=== PATIENT | female | born 1980 | race Caucasian/White ===

== ENCOUNTER 2019-05-07 18:47 | Inpatient (IN) | payer BC ==
[~2019-05-07] VITALS: Ht 172.7 cm; Wt 100.9 kg
[2019-05-07] MEDS ORDERED: PIPER-TAZ 3.375 GM 50 ML IV ONE (19:10)
[2019-05-07] MEDS ORDERED: VANCOMYCIN 1GM/NS 250 ML 250 ML IV ONE (19:10)
[2019-05-07] MEDS ORDERED: ONDANSETRON HCL INJ 2MG/ML 2ML 2 MG/ML VIAL IV ONE (19:10)
[2019-05-07] MEDS ORDERED: SODIUM CHLORIDE 0.9% 1000ML 1,000 ML IV STA (19:10)
[2019-05-07 19:27] LABS: BASOPHILS % 0.2 % (0.0-1.0); EOSINOPHILS # (AUTO) 0.2 (0.0-0.4); EOSINOPHILS % 1.5 % (0.0-6.0); HEMATOCRIT 39.7 % (34.2-44.1); HEMOGLOBIN 12.7 g/dL (12.0-16.0); LYMPHOCYTES # (AUTO) 1.6 (1.0-3.2); LYMPHOCYTES % 16.1 % (18.0-39.1); MEAN CORPUSCULAR HEMOGLOBIN 25.6 pg (28-32); MONOCYTES # (AUTO) 0.6 (0.2-0.8); MONOCYTES % 5.5 % (4.4-11.3); NEUTROPHILS # (AUTO) 7.6 (2.1-6.9); NEUTROPHILS % 76.2 % (38.7-80.0); PLATELET COUNT 282 x10e3/uL (140-360); RED BLOOD COUNT 4.96 x10e6/uL (3.6-5.1)
[2019-05-07] MEDS ORDERED: SODIUM CHLORIDE 0.9% 1000ML 1,000 ML ONE (19:29)
[2019-05-07] MEDS: MORPHINE SULFATE 2 MG/ML SYR 1ML IV ONE ×2 (19:41→19:43)
[2019-05-07 19:45] LABS: ALANINE AMINOTRANSFERASE 6 IU/L (0-55); ALBUMIN 3.1 g/dL (3.5-5.0); ALBUMIN/GLOBULIN RATIO 0.8 (0.8-2.0); ALKALINE PHOSPHATASE 96 IU/L (40-150); ANION GAP 15.3 mmol/L (8-16); BLOOD UREA NITROGEN 10 mg/dL (7-26); BUN/CREATININE RATIO 12 (6-25); CALCIUM 9.4 mg/dL (8.4-10.2); CARBON DIOXIDE 24 mmol/L (22-29); CHLORIDE 97 mmol/L (98-107); CREATININE, SERUM 0.84 mg/dL (0.57-1.11); EST GLOMERULAR FILTRATION RATE > 60 ML/MIN (60-); POTASSIUM 3.3 mmol/L (3.5-5.1); SODIUM 133 mmol/L (136-145)
[2019-05-07 19:48] LABS: GLUCOSE 541 mg/dL (74-118)
[2019-05-07] MEDS ORDERED: INSULIN REGULAR, HUMAN 100 UNIT/1 ML 3ML VIAL SQ ONE (20:00)
[2019-05-07] MEDS ORDERED: SODIUM CHLORIDE 0.9% 1000ML 1,000 ML IV ONE (20:00)
--- OUTSIDE RECORDS SUMMARY | 2019-05-07 20:06 | XMS REPORT | Encounter Summary ---
Author Organization Unknown Address [address] [place] [address] Phone [phone] Reason for Visit Flu Immunization; Medical Complaint Instructions 1. Upper respiratory infection Bromfed DM 2 mg-30 mg-10 mg/5 mL syrup Augmentin 875 mg-125 mg tablet 2. Sore throat symptom rapid strep group A, throat 3. Influenza vaccine needed Fluzone Quad [id number] 60 mcg (15 mcg x 4)/0.5 mL IM suspension 4. Body mass index 30+ - obesity 5. Dietary management surveillance 6. Exercises education, guidance, and counseling Discussion Note: None recorded. Patient educational handouts: No information available. Plan of Care Patient Instructions take bromfed for the next 2 days. it can cause drowsiness. do not drive will on this medication. start antibiotics in 2-3 days if symptoms persist. follow up pcp Reminders Provider Appointments None recorded. Lab Rapid Strep Group a, Throat 08/21/2016 [facility] Referral None recorded. Procedures None recorded. Surgeries None recorded. Imaging None recorded. Medications Name Start Date Augmentin 875 mg-125 mg tablet Take 1 tablet every 12 hours by oral route with meals for 7 days. benzonatate 100 mg capsule Bromfed DM 2 mg-30 mg-10 mg/5 mL syrup Take 10 mL every 4 hours by oral route as needed. ceftriaxone ceftriaxone 250 mg solution for injection cephalexin 500 mg capsule ciprofloxacin 500 mg tablet clindamycin 300 mg capsule doxycycline hyclate 100 mg capsule doxycycline hyclate 100 mg tablet fluconazole fluconazole 150 mg tablet TK 1 T PO QD fluoxetine 20 mg capsule TK 1 C PO QAM glimepiride 1 mg tablet TK 1 T PO ONCE D WITH BREAKFAST OR 1ST MEAL OF THE DAY ibuprofen 600 mg tablet losartan 25 mg tablet metformin 500 mg tablet metronidazole 500 mg tablet mupirocin 2 % topical ointment pravastatin 40 mg tablet ProAir RespiClick 90 mcg/actuation breath activated INHALE 2 PUFFS PO Q 4 TO 6 H PRN Trulicity 1.5 mg/0.5 mL subcutaneous pen injector INJECT 0.5ML ONCE A WEEK SUBCUTANEOUSLY valacyclovir valacyclovir 1 gram tablet Medications Administered None recorded. Vitals Height Weight BMI Blood Pressure 5 ft 8 in 245 lbs 37.3 124/76 Lab Results Date Name Result Description Value Range Status Rapid Strep Group a, Throat Result negative Swab Location Left and Right tonsillar pillars Allergies Name Reaction Severity Onset Sulfa (Sulfonamide Antibiotics) Rash Problems Name Status Onset Date Source Dysfunction of Eustachian Tube Active Encounter Acute Sinusitis Active Encounter Acute Bronchitis Active Encounter Allergic Rhinitis Active Encounter Posterior Rhinorrhea Active Encounter Procedures None recorded. Vaccine List Vaccine Type influenza, injectable, quadrivalent 08/21/2016 Tdap 09/23/2009 Social History Smoking Status Never Smoker Past Encounters 08/21/2016 Upper Respiratory Infection; Sore Throat Symptom; Influenza Vaccine Needed; Body Mass Index 30+ - Obesity; Dietary Management Surveillance; Exercises Education, Guidance, and Counseling CHRISTINE Sims-C: [address] [place] [address], Ph. History of Present Illness Throat-Oral Complaint Reported By: Patient HPI: Location: throat. Quality: sore throat, productive cough, congested. Severity: mild. Duration: 3 days. Onset/Timing: gradual. Context: no sick contacts, no foreign travel, non-smoker. Associated Symptoms: no shortness of breath, no wheezing, no change in number of pillows needed to sleep at night, no sweats, no significant weight gain, no significant weight loss, no morning cough, no vomiting, no diarrhea, no rash, no nausea, yellow-green, thick sputum, sore throat Immunization Reported By: Patient HPI: Immunization Request (normal) no symptoms, No medical complaints. Immunization eligibility questions No vaccines in last month, No reaction to previous vaccines:, No Known Allergies Review of Systems:ROS as noted in the HPI Review of Systems Basic Reported By: Patient Physical Exam Adult Basic, Adult Female Complete, Immunization Reported By: Patient Constitutional: General Appearance: well-nourished, overweight. Level of Distress: NAD. Ambulation: ambulating normally Psychiatric: Mental Status: active and alert Eyes: Lids and Conjunctivae: non-injected, no discharge Mql-Vhek-Vctis-Throat: Ears: no lesions on external ear, no outer ear tenderness, TMs clear. Hearing: no hearing loss. Nose: nares patent, no nasal discharge. Lips, Teeth, and Gums: no mouth or lip ulcers. Oropharynx: moist mucous membranes, no erythema, no exudates, tonsils not enlarged Neck: Neck: supple. Lymph Nodes: no cervical LAD Lungs: Respiratory effort: no dyspnea, no tachypnea. Auscultation: breath sounds normal Cardiovascular: Heart Auscultation: no murmurs, tachycardia Neurologic: Gait and Station: normal gait, normal station
--- OUTSIDE RECORDS SUMMARY | 2019-05-07 20:06 | XMS REPORT | Continuity of Care Document ---
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 Name Role Phone [employer] Unavailable Unavailable Problems Problem Status Onset Date Classification Date Reported Comments Source Upper respiratory infection 08/21/2016 Diagnosis 08/21/2016 [facility] Sore throat symptom 08/21/2016 Diagnosis 08/21/2016 [facility] Influenza vaccine needed 08/21/2016 Diagnosis 08/21/2016 [facility] Body mass index 30+ - obesity 08/21/2016 Diagnosis 08/21/2016 [facility] Dietary management surveillance 08/21/2016 Diagnosis 08/21/2016 [facility] Exercises education, guidance, and counseling 08/21/2016 Diagnosis 08/21/2016 [facility] Acute bronchitis 01/31/2016 Diagnosis 02/01/2016 [facility] Dysfunction of Eustachian Tube Problem 08/21/2016 [facility] Acute Sinusitis Problem 08/21/2016 [facility] Acute Bronchitis Problem 08/21/2016 [facility] Allergic Rhinitis Problem 08/21/2016 [facility] Posterior Rhinorrhea Problem 08/21/2016 [facility] Medications Medication Details Route Status Patient Instructions Ordering Provider Order Date Source Brompheniramine Maleate 0.4 MG/ML / Dextromethorphan Hydrobromide 2 MG/ML / Pseudoephedrine Hydrochloride 6 MG/ML Oral Solution [Bromfed DM] Bromfed DM 2 mg-30 mg-10 mg/5 mL syrup Take 10 mL every 4 hours by oral route as needed. Active [facility] Rocephin ceftriaxone Active [facility] doxycycline hyclate 100 MG Oral Capsule doxycycline hyclate 100 mg capsule Active [facility] Diflucan fluconazole Active [facility] Metformin hydrochloride 500 MG Oral Tablet metformin 500 mg tablet Active [facility] 200 ACTUAT Albuterol 0.09 MG/ACTUAT Dry Powder Inhaler [ProAir] ProAir RespiClick 90 mcg/actuation breath activated INHALE 2 PUFFS PO Q 4 TO 6 H PRN Active [facility] benzonatate 100 MG Oral Capsule [Tessalon Perles] Tessalon Perles 100 mg capsule Take 1 capsule(s) 3 times a day by oral route. Active [facility] Valtrex valacyclovir Active [facility] Amoxicillin 875 MG / Clavulanate 125 MG Oral Tablet [Augmentin] Augmentin 875 mg-125 mg tablet Take 1 tablet every 12 hours by oral route with meals for 7 days. Active [facility] benzonatate 100 MG Oral Capsule benzonatate 100 mg capsule Active [facility] Ceftriaxone 250 MG Injection ceftriaxone 250 mg solution for injection Active [facility] Cephalexin 500 MG Oral Capsule cephalexin 500 mg capsule Active [facility] Ciprofloxacin 500 MG Oral Tablet ciprofloxacin 500 mg tablet Active [facility] Clindamycin 300 MG Oral Capsule clindamycin 300 mg capsule Active [facility] doxycycline hyclate 100 MG Oral Tablet doxycycline hyclate 100 mg tablet Active [facility] Fluconazole 150 MG Oral Tablet fluconazole 150 mg tablet TK 1 T PO QD Active [facility] Fluoxetine 20 MG Oral Capsule fluoxetine 20 mg capsule TK 1 C PO QAM Active [facility] glimepiride 1 MG Oral Tablet glimepiride 1 mg tablet TK 1 T PO ONCE D WITH BREAKFAST OR 1ST MEAL OF THE DAY Active [facility] Ibuprofen 600 MG Oral Tablet ibuprofen 600 mg tablet Active [facility] Losartan Potassium 25 MG Oral Tablet losartan 25 mg tablet Active [facility] Metronidazole 500 MG Oral Tablet metronidazole 500 mg tablet Active [facility] Mupirocin 0.02 MG/MG Topical Ointment mupirocin 2 % topical ointment Active [facility] Pravastatin Sodium 40 MG Oral Tablet pravastatin 40 mg tablet Active [facility] 0.5 ML dulaglutide 3 MG/ML Auto-Injector [Trulicity] Trulicity 1.5 mg/0.5 mL subcutaneous pen injector INJECT 0.5ML ONCE A WEEK SUBCUTANEOUSLY Active [facility] valacyclovir 1000 MG Oral Tablet valacyclovir 1 gram tablet Active [facility] Allergies, Adverse Reactions, Alerts Substance Category Reaction Severity Reaction type Status Date Reported Comments Source Sulfa (Sulfonamide Antibiotics) Rash Allergy to substance 07/14/2012 [facility] Immunizations Immunization Date Given Site Status Last Updated Comments Source influenza, injectable, quadrivalent 08/21/2016 completed [facility] Tdap 09/24/2009 completed [facility] Results Order Name Results Value Reference Range Date Interpretation Comments Source RESULT negative 08/21/2016 [facility] SWAB LOCATION Left and Right tonsillar pillars 08/21/2016 [facility] Pathology Reports No Data Provided for This Section Diagnostic Reports No Data Provided for This Section Consultation Notes No Data Provided for This Section Discharge Summaries No Data Provided for This Section History and Physicals No Data Provided for This Section Vital Signs Vital Sign Value Date Comments Source Diastolic (mm Hg) 76 08/21/2016 [facility] Height 68 08/21/2016 [facility] Systolic (mm Hg) 124 08/21/2016 [facility] Weight 245 08/21/2016 [facility] Diastolic (mm Hg) 82 01/31/2016 [facility] Height 68 01/31/2016 [facility] Systolic (mm Hg) 130 01/31/2016 [facility] Weight 247 01/31/2016 [facility] Encounters Location Location Details Encounter Type Encounter Number Reason For Visit Attending Provider ADM Date DC Date Status Source [place] [facility] [id number] [facility] [employer] BRANDER: [address], [place] [address], Ph. [phone] [id number] [facility]/2016 [facility] [place] [facility] [id number] Pollo Hardy, [facility]: [address] [place] [address], Ph. [id number] Pollo Hardy 08/21/2016 [facility] Procedures No Data Provided for This Section Assessment and Plan No Data Provided for This Section Plan of Care No Data Provided for This Section Social History Social History Date Source Smoking Status Never Smoker 07/02/2012 [facility] Family History No Data Provided for This Section Advance Directives No Data Provided for This Section Functional Status No Data Provided for This Section
--- OUTSIDE RECORDS SUMMARY | 2019-05-07 20:06 | XMS REPORT | Encounter Summary ---
Author Organization Unknown Address [address] [place] [address] Phone [phone] Reason for Visit Medical Complaint; c/o cough x 4 days Instructions 1. Acute bronchitis Tessalon Perles 100 mg capsule Bromfed DM 2 mg-30 mg-10 mg/5 mL syrup bronchitis: care instructions ProAir RespiClick 90 mcg/actuation breath activated Discussion Note: None recorded. Plan of Care Patient Instructions *Take all medicines exactly as prescribed. Call your doctor if you think you are having a problem with your medicine. *Get some extra rest. *Take an gqmg-hrm-sauordn pain medicine, such as acetaminophen (Tylenol), ibuprofen (Advil, Motrin), or naproxen (Aleve) to reduce fever and relieve body aches. Read and follow all instructions on the label. *Do not take two or more pain medicines at the same time. Many pain medicines have acetaminophen, which is Tylenol. Too much acetaminophen (Tylenol) can be harmful. *Take an jiln-ydh-ybsloom cough medicine that contains dextromethorphan to help quiet a dry, hacking cough so that you can sleep. Avoid cough medicines that have more than one active ingredient. Read and follow all instructions on the label. *Breathe moist air from a humidifier, hot shower, or sink filled with hot water. The heat and moisture will thin mucus so you can cough it out. *Do not smoke. Smoking can make bronchitis worse. If you need help quitting, talk to your doctor about stop-smoking programs and medicines. These can increase your chances of quitting for good. If no improvement in 3-5 days, or if new or worsening symptoms develop, follow up with a primary care physician. Reminders Provider Appointments None recorded. Lab None recorded. Referral None recorded. Procedures None recorded. Surgeries None recorded. Imaging None recorded. Medications Name Start Date Bromfed DM 2 mg-30 mg-10 mg/5 mL syrup Take 10 mL every 4 hours by oral route as needed. ceftriaxone doxycycline hyclate 100 mg capsule Take 1 capsule(s) twice a day by oral route. fluconazole metformin 500 mg tablet ProAir RespiClick 90 mcg/actuation breath activated Inhale 2 puff(s) every 4-6 hours by inhalation route as needed. Tessalon Perles 100 mg capsule Take 1 capsule(s) 3 times a day by oral route. valacyclovir Medications Administered None recorded. Vitals Height Weight BMI Blood Pressure 5 ft 8 in 247 lbs 37.6 130/82 Lab Results None recorded. Allergies Name Reaction Severity Onset Sulfa (Sulfonamide Antibiotics) Rash Problems Name Status Onset Date Source Dysfunction of Eustachian Tube Active Encounter Acute Sinusitis Active Encounter Acute Bronchitis Active Encounter Allergic Rhinitis Active Encounter Posterior Rhinorrhea Active Encounter Procedures None recorded. Vaccine List None recorded. Social History Smoking Status Never Smoker Past Encounters 01/31/2016 Acute Bronchitis Joyce Johnson, DRUM SANDER: [address] [place] [address], Ph. [phone] History of Present Illness Cough Reported By: Patient HPI: Quality: productive cough, sore throat, hacking cough. Duration: 4 days. Severity: moderate. Onset/Timing: gradual. Context: no sick contacts, no foreign travel, non-smoker. Modifying factors: OTC medication. Associated Symptoms: no wheezing, no sweats, no significant weight gain, no significant weight loss, no diarrhea, no rash, no nausea, shortness of breath, difficulty breathing at night, morning cough, sore throat, vomiting; Clear colored sputum Review of Systems:ROS as noted in the HPI Review of Systems Basic Reported By: Patient Physical Exam Adult Female Complete, Adult Basic Constitutional: General Appearance: healthy-appearing, well-nourished, well-developed. Level of Distress: NAD. Ambulation: ambulating normally Psychiatric: Mental Status: active and alert. Orientation: to time, to place, to person Eyes: Lids and Conjunctivae: non-injected, no discharge, no pallor. Pupils: PERRLA. Corneas: grossly intact. Lens: clear. Sclerae: non-icteric. Vision: acuity grossly intact Zyu-Odxr-Klgfu-Throat: Ears: no lesions on external ear, no outer ear tenderness, EACs clear, TMs clear. Hearing: no hearing loss. Nose: no lesions on external nose, nares patent, no septal deviation, nasal passages clear, no sinus tenderness, no nasal discharge. Lips, Teeth, and Gums: no mouth or lip ulcers, no bleeding gums, normal dentition. Oropharynx: moist mucous membranes, no erythema, no exudates, tonsils not enlarged Neck: Neck: supple, trachea midline, no masses, FROM. Lymph Nodes: no cervical LAD. Thyroid: no enlargement, non-tender, no nodules Lungs: Respiratory effort: no dyspnea, no tachypnea, no use of accessory muscles, no intercostal retractions. Auscultation: breath sounds normal Cardiovascular: Heart Auscultation: RRR, no murmurs
--- NOTE | 2019-05-07 21:14 | Diagnostic Imaging Report ---
EXAM: CT of the abdomen and pelvis WITH contrast HISTORY: Redness, right upper quadrant, pain, rule out abscess, history of diabetes COMPARISON: None. TECHNIQUE: The abdomen and pelvis were scanned utilizing a multidetector helical scanner. Coronal and sagittal reformats are provided. PROTOCOL: Routine IV CONTRAST: 100 cc of Isovue-370. ORAL CONTRAST: None, which limits sensitivity and specificity of the exam. RADIATION DOSE: Total DLP: 828.77 mGy*cm Estimated effective dose: (DLP x 0.015 x size factor) Dose modulation, iterative reconstruction, and/or weight based adjustment of the mA/kV was utilized to reduce the radiation dose to as low as reasonably achievable. COMPLICATIONS: None FINDINGS: LOWER THORAX: Minimal bibasilar atelectasis. HEPATOBILIARY: No mass. No biliary dilation. No calcified gallstone. SPLEEN: Mild splenomegaly, 13 cm. PANCREAS: No focal masses or ductal dilatation. ADRENALS: Subtle nodular contour, but no discrete adrenal nodule. KIDNEYS/URETERS: No hydronephrosis, stones, or definite solid mass lesions. PELVIC ORGANS/BLADDER: The urinary bladder is decompressed, which limits evaluation. The uterus is mildly retroflexed. GI TRACT: No dilation or wall thickening identified. PERITONEUM / RETROPERITONEUM: No free air or fluid. LYMPH NODES: No pathologically enlarged lymph node. VESSELS: Unremarkable. BONES and JOINTS: No aggressive osseous lesion or acute fracture. Severe degenerative disc changes at L2-3. SOFT TISSUES: Nonspecific fat stranding within the adipose tissue overlying the anterolateral aspect of the right upper quadrant of the abdomen, apparent subtle superficial soft tissue defect. IMPRESSION: 1. Findings compatible with cellulitis/panniculitis. 2. No abscess. Signed by: Dr. Carlo Miranda D.O., M.M.M. on 05/07/2019 9:10 PM
[2019-05-07] MEDS ORDERED: ONDANSETRON HCL INJ 2MG/ML 2ML 2 MG/ML VIAL IV PRN (21:45)
[2019-05-07] MEDS ORDERED: DEXTROSE 50% SYRINGE 50 ML IV PRN (21:45)
--- OUTSIDE RECORDS SUMMARY | 2019-05-07 21:51 | XMS REPORT ---
Author Author [facility] Address Unknown Phone Unavailable Care Team Providers Care Manager Animation Name Role Phone Piper ALLRED Unavailable Unavailable Problems This patient has no known problems. Allergies, Adverse Reactions, Alerts This patient has no known allergies or adverse reactions. Medications This patient has no known medications. Results Test Description Test Time Test Comments Text Results Atomic Results Result Comments CT ABDOMEN/PELVIS W 2019-05-07 21:02:00 [place] [address] Patient Name: DICKSON CABELLO MR #: [id number] : 1980 Age/Sex: 39/F Req #: [id number] Adm Physician: Ordered by: TAMAR COLON EVENT SPECIALIST PRODUCT DEMONSTRATOR Report #: [id number] Location: ER Room/Bed: Procedure: [id number] CT/CT ABDOMEN/PELVIS W Exam Date: 05/07/19 Exam Time: 2036 REPORT STATUS: Signed EXAM: CT of the abdomen and pelvis WITH contrast HISTORY: Redness, right upper quadrant, pain, rule out abscess, history of diabetes COMPARISON: None. TECHNIQUE: The abdomen and pelvis were scanned utilizing a multidetector helical scanner. Coronal and sagittal reformats are provided. PROTOCOL: Routine IV CONTRAST: 100 cc of Isovue-370. ORAL CONTRAST: None, which limits sensitivity and specificity of the exam. RADIATION DOSE: Total DLP: 828.77 mGy*cm Estimated effective dose: (DLP x 0.015 x size factor) Dose modulation, iterative reconstruction, and/or weight based adjustment of the mA/kV was utilized to reduce the radiation dose to as low as reasonably achievable. COMPLICATIONS: None FINDINGS: LOWER THORAX: Minimal bibasilar atelectasis. HEPATOBILIARY: No mass. No biliary dilation. No calcified gallstone. SPLEEN: Mild splenomegaly, 13 cm. PANCREAS: No focal masses or ductal dilatation. ADRENALS: Subtle nodular contour, but no discrete adrenal nodule. KIDNEYS/URETERS: No hydronephrosis, stones, or definite solid mass lesions. PELVIC ORGANS/BLADDER: The urinary bladder is decompressed, which limits evaluation. The uterus is mildly retroflexed. GI TRACT: No dilation or wall thickening identified. PERITONEUM / RETROPERITONEUM: No free air or fluid. LYMPH NODES: No pathologically enlarged lymph node. VESSELS: Unremarkable. BONES and JOINTS: No aggressive osseous lesion or acute fracture. Severe degenerative disc changes at L2-3. SOFT TISSUES: N onspecific fat stranding within the adipose tissue overlying the anterolateral aspect of the right upper quadrant of the abdomen, apparent subtle superficial soft tissue defect. IMPRESSION: 1. Findings compatible with cellulitis/panniculitis. 2. No abscess. Signed by: Ryan SmithO., M.M.M. on 05/07/2019 9:10 PM Dictated By: TAMEKA CHAWLA DO 09 Transcribed By: SOMMER on 05/07/192109 COPY TO: TAMAR COLON NP
--- OUTSIDE RECORDS SUMMARY | 2019-05-07 21:51 | XMS REPORT | Continuity of Care Document ---
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 [phone] [id number] [facility] 01/31/2016 [facility] [place] - [facility] [id number] Pollo Hardy, [facility]: [address] [place] [address], Ph. [id number] Pollo Hardy 08/21/2016 [facility] Procedures No Data [...]
[2019-05-07] MEDS ORDERED: METFORMIN HCL500 MG PO ×2 (21:57)
[2019-05-07] MEDS ORDERED: AMARYL2 MG PO (21:57)
[2019-05-07] MEDS ORDERED: ACETAMINOPHEN/CODEINE 300MG - 30MG TAB PO PRN (22:00)
[2019-05-07 22:02] VITALS: BP 116/70
--- NOTE | 2019-05-07 22:02 | NUR ---
received patient from er. wound to [facility]. wound care consult ordered.
[2019-05-07 22:05] VITALS: BP 116/70
[2019-05-07] MEDS: SODIUM CHLORIDE 0.9% 1000ML 1,000 ML IV SCH (22:15)
[2019-05-07] MEDS ORDERED: IOPAMIDOL 370 MG/ML 200 ML INFUS..BTL INJ ONE (22:48)
[2019-05-07] MEDS ORDERED: SODIUM CHLORIDE 0.9% 50ML 50 ML ONE (22:48)
[2019-05-08] VITALS (9 sets, daily range): BP systolic 115–138; BP diastolic 67–85
[2019-05-08] MEDS: PIPER-TAZ 3.375 GM 50 ML IV SCH ×3 (04:14→20:41)
[2019-05-08 05:09] LABS: BASOPHILS % 0.2 % (0.0-1.0); EOSINOPHILS # (AUTO) 0.2 (0.0-0.4); EOSINOPHILS % 1.8 % (0.0-6.0); HEMATOCRIT 33.7 % (34.2-44.1); HEMOGLOBIN 10.8 g/dL (12.0-16.0); LYMPHOCYTES # (AUTO) 1.8 (1.0-3.2); LYMPHOCYTES % 18.9 % (18.0-39.1); MEAN CORPUSCULAR HEMOGLOBIN 25.8 pg (28-32); MEAN CORPUSCULAR VOLUME 80.4 fL (81-99); MONOCYTES # (AUTO) 0.6 (0.2-0.8); MONOCYTES % 6.3 % (4.4-11.3); NEUTROPHILS % 72.2 % (38.7-80.0); PLATELET COUNT 249 x10e3/uL (140-360); RED BLOOD COUNT 4.19 x10e6/uL (3.6-5.1); RED CELL DISTRIBUTION WIDTH 13.1 % (11.7-14.4)
[2019-05-08 05:30] LABS: ALANINE AMINOTRANSFERASE 9 IU/L (0-55); ALBUMIN 2.5 g/dL (3.5-5.0); ALBUMIN/GLOBULIN RATIO 0.8 (0.8-2.0); ALKALINE PHOSPHATASE 77 IU/L (40-150); ANION GAP 12.4 mmol/L (8-16); BLOOD UREA NITROGEN 9 mg/dL (7-26); BUN/CREATININE RATIO 15 (6-25); CALCIUM 8.4 mg/dL (8.4-10.2); CARBON DIOXIDE 22 mmol/L (22-29); CHLORIDE 106 mmol/L (98-107); EST GLOMERULAR FILTRATION RATE > 60 ML/MIN (60-); GLUCOSE 262 mg/dL (74-118); POTASSIUM 3.4 mmol/L (3.5-5.1); SODIUM 137 mmol/L (136-145)
[2019-05-08] MEDS: SODIUM CHLORIDE 0.9% 1000ML 1,000 ML IV SCH (05:57)
--- NOTE | 2019-05-08 07:10 | NUR ---
RCD PT AT BED PT IS ALERT AND ORIENTED PT RESTING ON BED NO SIGNS OF ANY DISTRESS NOTED IV PATENT BED LOW AND LOCKED CALL LIGHT IN REACH
[2019-05-08] MEDS: INSULIN REGULAR, HUMAN 100 UNIT/1 ML 3ML VIAL SQ SCH ×4 (07:30→21:50)
[2019-05-08] MEDS: VANCOMYCIN 1GM/NS 250 ML 250 ML IV SCH ×2 (09:00→21:54)
[2019-05-08] MEDS ORDERED: ACETAMINOPHEN 325 MG TAB PO PRN (09:45)
[2019-05-08] MEDS ORDERED: HYDRALAZINE HCL 20 MG/ML VIAL IV PRN (09:45)
[2019-05-08] MEDS ORDERED: ONDANSETRON HCL 4 MG ORAL DISINTEGRATING TAB PO PRN (10:00)
--- NOTE | 2019-05-08 10:00 | NUR ---
PT REFUSED SCDS
--- NOTE | 2019-05-08 12:51 | NUR ---
WOUND CARE CONSULTATION: THIS IS A 39 YEAR OLD FEMALE PATIENT ADMITTED TO [facility] FOR CELLULITIS OF THE RIGHT ABDOMINAL WALL AND UNCONTROLLED DM TYPE 2. HEAD TO TOE SKIN ASSESSMENT PERFORMED. PATIENT HAS A RIGHT UPPER QUADRANT WOUND MEASURING 1X0.4X2.7CM, 70% PINK GRANULATION AND 30% SLOUGH NOTED TO WOUND BED WITH MODERATE SEROSANGIENOUS DRAINAGE, NO ODOR; SLIGHT PERIWOUND ERYTHEMA NOTED, PATIENT STATES IT HAS DECREASED OVER LAST SEVERAL DAYS. PATIENT SOUGHT CARE AT A LOCAL FREE STANDING URGENT CARE AND WAS REFERRED TO OUR HOSPITAL AFTER THE WOUND WAS LANCED IN THE URGENT CARE ON SUNDAY. PATIENT IS DIABETIC, BS 262 TODAY; ENCOURAGED PATIENT THAT INCREASING PROTEIN AND CONTROLLING HER GLUCOSE LEVELS WILL HELP TO PROMOTE WOUND HEALING; PATIENT VERBALIZED UNDERSTANDING. LABS: WBC9.73 ALB2.5 [id number] BLOOD CULTURE = PENDING CT ABDOMEN = FINDINGS COMPATIBLE WITH CELLULITIS/PANNICULITIS; NO ABSCESS. MEDICATIONS: ZOSYN VANCOMYCIN RECOMMENDATION: -CONTINUE ALTERNATING PRESSURE RELIEF MATTRESS. -APPLY BILATERAL HEEL PROTECTORS WITH PILLOW SUSPENSION. -ENCOURAGE PATIENT TO TURN EVERY 2 HOURS AND PRN. -NURSING TO CLEAN RUQ ABDOMINAL WOUND WITH NORMAL SALINE, PAT DRY, APPLY BACTROBAN AND PACK WITH IODOFORM PACKING, COVER WITH MAXORB AG AND SECURE WITH TAPE; CHANGE DAILY AND PRN. THANK YOU FOR THIS WOUND CARE CONSULT. Addendum: 05/08/19 at 1304 by Betzaida Pro RN Amended: Links added.
[2019-05-08] MEDS: FAMOTIDINE 20 MG TAB PO SCH (16:30)
--- NOTE | 2019-05-08 18:00 | NUR ---
DRESSING CHANGED ON RIGHT UPPER QUARDINENT
--- NOTE | 2019-05-08 18:50 | NUR ---
PT RESTING ON BED BED SIDE REPORT GIVEN TO ONCOMING NURSE
[2019-05-08] MEDS: MUPIROCIN 2% OINT 22 GM TUBE TOP SCH (19:29)
[2019-05-08] MEDS: ACETAMINOPHEN/CODEINE 300MG - 30MG TAB PO PRN (19:29)
--- NOTE | 2019-05-08 19:38 | Consultation ---
DATE OF CONSULTATION: 05/08/2019 CHIEF COMPLAINT: Abdominal wall abscess. HISTORY OF PRESENT ILLNESS: The patient is a 39-year-old female, diabetic, who complained of a 4-day history of abdominal wall swelling, redness and tenderness. The patient was seen in the emergency room and incision and drainage was carried out in the emergency room. The patient, however, still having pain and drainage. Therefore, she was readmitted for IV antibiotics and possible further drainage. PAST MEDICAL HISTORY: Positive for diabetes and polycystic ovary syndrome. ALLERGIES: SHE HAS ALLERGIC REACTION TO SULFA. SURGICAL HISTORY: She denied previous history of abscess. REVIEW OF SYSTEMS: No chest pain or shortness of breath. PHYSICAL EXAMINATION: VITAL SIGNS: Stable, afebrile. GENERAL: She is awake, alert, in moderate discomfort. HEENT: Sclerae nonicteric. NECK: Supple. LUNGS: Clear. HEART: Regular rate and rhythm. ABDOMEN: Soft. There is a small 1 cm opening in the right upper quadrant with exudative drainage and skin erythema and edema. The wound depth is approximately 2.5 cm with exquisite tenderness. LABORATORY DATA: White cell count is 9, hemoglobin 11, creatinine of 0.6, and glucose of 206. ASSESSMENT: Abdominal wall abscess, partially drained. PLAN: Open drainage of abdominal wall abscess under anesthesia. Attendant risks discussed. Paolo Darling MD DNTrent/MODL /[id number]
[2019-05-09] VITALS (7 sets, daily range): BP systolic 117–144; BP diastolic 60–97
[2019-05-09] MEDS: PIPER-TAZ 3.375 GM 50 ML IV SCH ×3 (04:39→21:27)
[2019-05-09 05:56] LABS: ANION GAP 10.8 mmol/L (8-16); BLOOD UREA NITROGEN 11 mg/dL (7-26); BUN/CREATININE RATIO 17 (6-25); CALCIUM 8.7 mg/dL (8.4-10.2); CARBON DIOXIDE 27 mmol/L (22-29); CHLORIDE 104 mmol/L (98-107); CREATININE, SERUM 0.64 mg/dL (0.57-1.11); EST GLOMERULAR FILTRATION RATE > 60 ML/MIN (60-); GLUCOSE 262 mg/dL (74-118); POTASSIUM 3.8 mmol/L (3.5-5.1); SODIUM 138 mmol/L (136-145)
[2019-05-09 06:04] LABS: FREE T4 (FREE THYROXINE) 0.99 ng/dL (0.8-1.8)
[2019-05-09 06:09] LABS: BASOPHILS % 0.3 % (0.0-1.0); EOSINOPHILS # (AUTO) 0.2 (0.0-0.4); EOSINOPHILS % 3.3 % (0.0-6.0); HEMOGLOBIN 10.4 g/dL (12.0-16.0); LYMPHOCYTES # (AUTO) 2.6 (1.0-3.2); MEAN CORPUSCULAR HEMOGLOBIN 25.9 pg (28-32); MEAN CORPUSCULAR HGB CONC 31.5 g/dL (31-35); MEAN CORPUSCULAR VOLUME 82.1 fL (81-99); MONOCYTES # (AUTO) 0.4 (0.2-0.8); PLATELET COUNT 265 x10e3/uL (140-360); RED BLOOD COUNT 4.02 x10e6/uL (3.6-5.1); RED CELL DISTRIBUTION WIDTH 13.2 % (11.7-14.4)
[2019-05-09] MEDS ORDERED: BACITRACIN 50,000 UNIT VIAL ONE (07:41)
--- NOTE | 2019-05-09 07:48 | NUR ---
Received call from Dr. Darling asking if pt had agreed to do I/D. Notified Dr. Darling that pt has agreed to do I/D and that consent has been signed. OR staff is here now to take pt for procedure. Pt is aox4 and able to verbalize needs. Denies any pain at this time.
[2019-05-09] MEDS ORDERED: BUPIVACAINE 0.5%/EPI 30 ML SDV INJ ONE (08:24)
[2019-05-09] MEDS: INSULIN REGULAR, HUMAN 100 UNIT/1 ML 3ML VIAL SQ SCH ×4 (08:44→21:41)
[2019-05-09] MEDS ORDERED: MORPHINE SULFATE INJ 4 MG/ML INJ 1ML IV PRN (08:45)
[2019-05-09] MEDS ORDERED: INSULIN REGULAR, HUMAN 100 UNIT/1 ML 3ML VIAL ONE (08:45)
[2019-05-09] MEDS ORDERED: GLIMEPIRIDE 2 MG TAB PO SCH (09:00)
[2019-05-09] MEDS: MUPIROCIN 2% OINT 22 GM TUBE TOP SCH (09:00)
--- NOTE | 2019-05-09 10:00 | NUR ---
Pt returned from procedure at this time. Pt is axo4 and able to verbalize needs. Dressing to right upper quadrant is intact and dry. Pt denies any pain at this time.
[2019-05-09] MEDS: FAMOTIDINE 20 MG TAB PO SCH ×2 (11:11→17:28)
[2019-05-09] MEDS: VANCOMYCIN 1GM/NS 250 ML 250 ML IV SCH ×2 (11:28→21:40)
[2019-05-09] MEDS: ACETAMINOPHEN/CODEINE 300MG - 30MG TAB PO PRN ×2 (13:52→21:40)
[2019-05-09] MEDS ORDERED: MIDAZOLAM HCL 2 MG/2 ML VIAL ONE (18:16)
[2019-05-09] MEDS ORDERED: FENTANYL CITRATE/PF 100MCG/2 ML INJ ONE (18:16)
[2019-05-09] MEDS ORDERED: ONDANSETRON HCL INJ 2MG/ML 2ML 2 MG/ML VIAL ONE (18:26)
[2019-05-09] MEDS ORDERED: SEVOFLURANE INHAL SOLN 250 ML PEN BTL ONE (18:26)
[2019-05-09] MEDS ORDERED: LIDOCAINE HCL 2% LOCAL INJ 5 ML SDV VIAL INJ ONE (18:26)
[2019-05-09] MEDS ORDERED: DEXAMETHASONE SOD PHOS INJ 4 MG/ML VIAL ONE (18:26)
[2019-05-09] MEDS ORDERED: KETOROLAC TROMETHAMINE 30 MG/ML VIAL ONE (18:26)
[2019-05-09] MEDS ORDERED: PROPOFOL IV EMULSION 10 MG/ML 20 ML VIAL ONE (18:26)
[2019-05-10] VITALS (7 sets, daily range): BP systolic 112–130; BP diastolic 70–89
[2019-05-10 03:42] LABS: BASOPHILS % 0.2 % (0.0-1.0); EOSINOPHILS # (AUTO) 0.1 (0.0-0.4); EOSINOPHILS % 1.4 % (0.0-6.0); HEMATOCRIT 32.8 % (34.2-44.1); HEMOGLOBIN 10.3 g/dL (12.0-16.0); LYMPHOCYTES # (AUTO) 3.1 (1.0-3.2); MEAN CORPUSCULAR HEMOGLOBIN 25.4 pg (28-32); MEAN CORPUSCULAR HGB CONC 31.4 g/dL (31-35); MONOCYTES # (AUTO) 0.6 (0.2-0.8); MONOCYTES % 6.1 % (4.4-11.3); NEUTROPHILS # (AUTO) 5.7 (2.1-6.9); NEUTROPHILS % 59.6 % (38.7-80.0); PLATELET COUNT 287 x10e3/uL (140-360); RED BLOOD COUNT 4.05 x10e6/uL (3.6-5.1)
[2019-05-10 03:55] LABS: ANION GAP 10.7 mmol/L (8-16); BLOOD UREA NITROGEN 11 mg/dL (7-26); BUN/CREATININE RATIO 19 (6-25); CALCIUM 8.9 mg/dL (8.4-10.2); CARBON DIOXIDE 25 mmol/L (22-29); CHLORIDE 107 mmol/L (98-107); CREATININE, SERUM 0.57 mg/dL (0.57-1.11); EST GLOMERULAR FILTRATION RATE > 60 ML/MIN (60-); GLUCOSE 134 mg/dL (74-118); POTASSIUM 3.7 mmol/L (3.5-5.1); SODIUM 139 mmol/L (136-145)
[2019-05-10] MEDS: PIPER-TAZ 3.375 GM 50 ML IV SCH (04:45)
--- NOTE | 2019-05-10 07:21 | NUR ---
patient endorsed to next shift for continuity of care.
[2019-05-10] MEDS: FAMOTIDINE 20 MG TAB PO SCH ×2 (07:35→16:27)
[2019-05-10] MEDS: ACETAMINOPHEN/CODEINE 300MG - 30MG TAB PO PRN ×2 (07:35→16:37)
[2019-05-10] MEDS: INSULIN REGULAR, HUMAN 100 UNIT/1 ML 3ML VIAL SQ SCH ×4 (07:36→21:29)
[2019-05-10] MEDS: MUPIROCIN 2% OINT 22 GM TUBE TOP SCH (08:42)
[2019-05-10] MEDS: VANCOMYCIN 1GM/NS 250 ML 250 ML IV SCH (08:42)
[2019-05-10] MEDS ORDERED: VANCOMYCIN HCL 1.25 GM in SODIUM CHLORIDE 0.9% 250ML 250 ML IV SCH (09:00)
--- NOTE | 2019-05-10 13:29 | NUR ---
ORDERS TO ARRANGE IV VANCOMYCIN OUTPATIENT SCHEDULED FOR PICC LINE AND DC ON SUNDAY AFTER IV ABX APPROVED SPOKE WITH SACHI SYED AT [facility]: [phone] SHE CONFIRMED THAT THEY DO ACCEPT BS OF MOE CHOICE LETTER SIGNED BY PT AND COPY OF CHOICE LETTER GIVEN TO PT CONFIRMED PT'S ADDRESS AND PHONE NUMBER ORDERS FAXED TO [facility] AT [phone]; CONFIRMATION REC'D WILL FAX PICC PLACEMENT WHEN AVAILABLE ON SUNDAY
[2019-05-10] MEDS: VANCOMYCIN HCL 1.25 GM in SODIUM CHLORIDE 0.9% 250ML 250 ML IV SCH (21:09)
[2019-05-11] VITALS (8 sets, daily range): BP systolic 122–156; BP diastolic 73–92
[2019-05-11 06:51] LABS: BASOPHILS % 0.4 % (0.0-1.0); EOSINOPHILS # (AUTO) 0.2 (0.0-0.4); EOSINOPHILS % 2.4 % (0.0-6.0); HEMATOCRIT 32.8 % (34.2-44.1); LYMPHOCYTES # (AUTO) 2.8 (1.0-3.2); MEAN CORPUSCULAR HEMOGLOBIN 25.2 pg (28-32); MEAN CORPUSCULAR HGB CONC 30.5 g/dL (31-35); MEAN CORPUSCULAR VOLUME 82.6 fL (81-99); MONOCYTES # (AUTO) 0.5 (0.2-0.8); MONOCYTES % 5.9 % (4.4-11.3); NEUTROPHILS # (AUTO) 4.2 (2.1-6.9); NEUTROPHILS % 54.3 % (38.7-80.0); PLATELET COUNT 263 x10e3/uL (140-360); RED BLOOD COUNT 3.97 x10e6/uL (3.6-5.1); RED CELL DISTRIBUTION WIDTH 13.2 % (11.7-14.4)
--- NOTE | 2019-05-11 06:56 | NUR ---
complete dressing change per Dr Cutler order
--- NOTE | 2019-05-11 07:02 | NUR ---
walking rounds complete. pt alert resp even and unlabored at this time, no distress noted, call light in reach
[2019-05-11 07:12] LABS: ANION GAP 10.2 mmol/L (8-16); BLOOD UREA NITROGEN 12 mg/dL (7-26); BUN/CREATININE RATIO 19 (6-25); CALCIUM 8.8 mg/dL (8.4-10.2); CARBON DIOXIDE 29 mmol/L (22-29); CHLORIDE 105 mmol/L (98-107); CREATININE, SERUM 0.62 mg/dL (0.57-1.11); EST GLOMERULAR FILTRATION RATE > 60 ML/MIN (60-); GLUCOSE 212 mg/dL (74-118); POTASSIUM 4.2 mmol/L (3.5-5.1); SODIUM 140 mmol/L (136-145)
[2019-05-11] MEDS: INSULIN REGULAR, HUMAN 100 UNIT/1 ML 3ML VIAL SQ SCH ×4 (07:30→21:20)
[2019-05-11] MEDS: MUPIROCIN 2% OINT 22 GM TUBE TOP SCH (09:31)
[2019-05-11] MEDS: FAMOTIDINE 20 MG TAB PO SCH ×2 (09:31→16:50)
[2019-05-11] MEDS: VANCOMYCIN HCL 1.25 GM in SODIUM CHLORIDE 0.9% 250ML 250 ML IV SCH ×2 (09:31→21:08)
[2019-05-11] MEDS: ACETAMINOPHEN/CODEINE 300MG - 30MG TAB PO PRN ×2 (13:38→21:30)
--- NOTE | 2019-05-11 19:17 | NUR ---
report given to oncoming nurse, pt stable.
--- NOTE | 2019-05-11 23:29 | NUR ---
obtained consent form for PICC line insertion
[2019-05-12] VITALS: BP 144/76
[2019-05-12 04:00] VITALS: BP 124/71
[2019-05-12 05:31] LABS: BASOPHILS % 0.2 % (0.0-1.0); EOSINOPHILS # (AUTO) 0.2 (0.0-0.4); EOSINOPHILS % 2.5 % (0.0-6.0); HEMATOCRIT 33.5 % (34.2-44.1); HEMOGLOBIN 10.5 g/dL (12.0-16.0); LYMPHOCYTES # (AUTO) 2.9 (1.0-3.2); LYMPHOCYTES % 35.2 % (18.0-39.1); MEAN CORPUSCULAR HEMOGLOBIN 25.4 pg (28-32); MEAN CORPUSCULAR HGB CONC 31.3 g/dL (31-35); MEAN CORPUSCULAR VOLUME 81.1 fL (81-99); MONOCYTES # (AUTO) 0.5 (0.2-0.8); MONOCYTES % 5.8 % (4.4-11.3); NEUTROPHILS # (AUTO) 4.6 (2.1-6.9); NEUTROPHILS % 54.7 % (38.7-80.0); PLATELET COUNT 279 x10e3/uL (140-360); RED BLOOD COUNT 4.13 x10e6/uL (3.6-5.1)
[2019-05-12 05:44] LABS: ANION GAP 10.6 mmol/L (8-16); BLOOD UREA NITROGEN 9 mg/dL (7-26); BUN/CREATININE RATIO 15 (6-25); CARBON DIOXIDE 28 mmol/L (22-29); CHLORIDE 101 mmol/L (98-107); EST GLOMERULAR FILTRATION RATE > 60 ML/MIN (60-); GLUCOSE 165 mg/dL (74-118); PHOSPHORUS 3.9 MG/DL (2.3-4.7); POTASSIUM 3.6 mmol/L (3.5-5.1); SODIUM 136 mmol/L (136-145)
[2019-05-12] MEDS: INSULIN REGULAR, HUMAN 100 UNIT/1 ML 3ML VIAL SQ SCH ×3 (07:30→16:26)
[2019-05-12] MEDS: FAMOTIDINE 20 MG TAB PO SCH ×2 (07:49→16:06)
[2019-05-12] MEDS: MUPIROCIN 2% OINT 22 GM TUBE TOP SCH (07:50)
[2019-05-12 07:52] VITALS: BP 139/92
[2019-05-12 08:46] VITALS: BP 139/92
[2019-05-12] MEDS: VANCOMYCIN HCL 1.25 GM in SODIUM CHLORIDE 0.9% 250ML 250 ML IV SCH (08:51)
[2019-05-12 11:04] VITALS: BP 143/98
[2019-05-12 11:19] LABS: MAGNESIUM 1.7 MG/DL (1.3-2.1)
--- NOTE | 2019-05-12 11:39 | Diagnostic Imaging Report ---
Chest, 1 view, 05/12/2019. History: PICC placement. Comparison: None available. Findings: The cardiomediastinal silhouette and pulmonary vasculature are within normal limits for a portable exam. There is no focal consolidation or pleural effusion. Right upper extremity PICC terminates in the region of the proximal SVC. There are no acute osseous or soft tissue abnormalities. Impression: No acute cardiopulmonary abnormality. Signed by: Sharif Dobson on 05/12/2019 11:35 AM
--- NOTE | 2019-05-12 13:15 | NUR ---
Spoke to Norma with [facility]. She provided teaching at bedside to pt and pt's . Pending acceptance by home health.
[2019-05-12] MEDS ORDERED: ACETAMIN/BUTALBITAL/CAFFEINE TAB PO ONE (15:35)
[2019-05-12 15:40] VITALS: BP 137/98
[2019-05-12] MEDS ORDERED: ACETAMIN/BUTALBITAL/CAFFEINE TAB PO PRN (15:45)
[2019-05-12] MEDS ORDERED: METFORMIN HCL500 M1 PO (15:45)
[2019-05-12] MEDS ORDERED: TYLENOL # 31 EA PO (15:45)
[2019-05-12] MEDS ORDERED: HUMULIN R100 UNIT/2 SQ (15:45)
[2019-05-12] MEDS ORDERED: VANCOMYCIN HCL1 GM IV (15:45)
[2019-05-12] MEDS ORDERED: Acetamin/Butalbital/Caffeine PO (16:02)
--- NOTE | 2019-05-12 16:19 | NUR ---
Spoke with Norma with [facility]. They will deliver medications to pt's house conor prior to her 9pm dose. Home health set up with [facility] will see pt on Sunday. Pt and her are comfortable with administering her IV abx. Home health information given to pt.
--- NOTE | 2019-05-12 18:04 | NUR ---
left FA PIV removed with tip intact. PICC line to RUE in place with dressing C/D/I for continued antibiotics at home. escorted to front lobby entrance where spouse awaited in private auto. all personal belongings, RX and d/c instructions in hand at time of d/c.
--- NOTE | 2019-05-13 05:26 | Discharge Summary ---
HISTORY: Ms. Nobles is a 39-year-old female, who initially noticed a pimple on her abdomen on the Sunday night prior to admission. She came to the emergency department when the pain started. In the Urgent Care, they had drained it and packed it. Two days later, she removed the packing and still had a lot of drainage, so she came to the emergency department. She had a fever of 103 on the Sunday prior to admission. She denied nausea, vomiting, diarrhea, or recent exposure to any irritant or food or plant exposure. PAST MEDICAL HISTORY: Includes type 2 diabetes mellitus and PCOS. PAST SURGICAL HISTORY: Denies any past surgical history. FAMILY HISTORY: Her mother had diabetes. SOCIAL HISTORY: Denied any history of tobacco, alcohol, or illicit drugs. ALLERGIES: INCLUDE SULFA. ADMITTING DIAGNOSES: Included: 1. Abdominal cellulitis, possible abscess. 2. Type 2 diabetes mellitus. 3. Obesity. DISCHARGE DIAGNOSES: 1. Abdominal wall cellulitis with abscess, positive for methicillin-resistant Staphylococcus aureus, status post I and D on 05/09/2019. 2. Uncontrolled type 2 diabetes mellitus. 3. Obesity with BMI 33.75. 4. Headache. HOSPITAL COURSE: On admission; WBC 10.01, hemoglobin 12.7, hematocrit 39.7, and platelets 282. BUN 10, creatinine 0.84, GFR greater than 60, glucose 541, albumin 3.1, potassium 3.3, sodium 133. Blood cultures collected on the did not show any growth after 72 hours. The abdomen wound culture collected on May 08 as well as May 09 were both positive for MRSA. On the , a CT of the abdomen and pelvis showed findings compatible with cellulitis/panniculitis. No abscess. On , her vancomycin trough level was 2.7. Lactic acid was 23.5. Hemoglobin A1c was 12.9% on the . Followup lactic acid was 7.5. Today on the day of discharge; sodium 136, potassium 3.6, BUN 9, creatinine 0.6, GFR greater than 60. Fingerstick blood glucose levels 177, 269, and 211. Calcium 9, phosphorus 3.9, magnesium 1.7. Consults include Dr. Paolo Darling with Surgery. The patient will continue to receive IV vancomycin at home. PICC line placed today with post placement chest x-ray showing that the PICC line terminates in the region of the proximal superior vena cava. Today in seeing the patient, she states her abdominal pain is rated at 4 on a scale of 0 to 10. Her headache is scored 7 on a scale of 0 to 10. At present, we will try Fioricet 1 tablet stat as a trial. The patient is to continue ADA diet. She has been taking metformin 500 mg in the morning and 1000 mg at night. We will change that to 1000 mg b.i.d. as she has good renal function. Continue her Amaryl at home, put her on sliding scale insulin for now to ensure that her sugars are well controlled as her diabetes has been uncontrolled. Tylenol No.3 p.r.n. for pain as well as a prescription for the low-dose sliding scale insulin. The patient is to establish a PCP. Dr. Lewis's office information has been provided. Physical examination is unchanged. Activity level as tolerated. Follow up with Surgery as directed. Dictated by Mook Brennan NP Kyler Lewis MD HWP/MODL /[id number]
== END 2019-05-12 18:08 | disposition home or self-care (01) | DRG 581 ==
LOC: ER 18:47 → ERHOLD 21:41 → MED/SURG2 22:02
PROVIDERS: ADMIT Internal Medicine; ATTEND Internal Medicine
PROC: 0J980ZZ Drainage of Abdomen Subcutaneous Tissue and Fascia, Open Approach (ICD-10-PCS; principal; 2019-05-09 11:30)
PROC: 02HV33Z Insertion of Infusion Device into Superior Vena Cava, Percutaneous Approach (ICD-10-PCS; 2019-05-12)
DX: L03.311 Cellulitis of abdominal wall (principal); E66.9 Obesity, unspecified; Z68.33 Body mass index [BMI] 33.0-33.9, adult; R51 Headache; E11.65 Type 2 diabetes mellitus with hyperglycemia; B95.62 Methicillin resistant Staphylococcus aureus infection as the cause of diseases classified elsewhere
CPT/HCPCS: 36415; 36569; 71045; 74177; 80048; 80053; 80202; 82948; 83036; 83605; 83735; 84100; 84439; 84443; 84702; 85025; 87040; 87071; 87075; 87186; 87205; 96372; 96374; 99284; J1100; J1817; J1885; J2001; J2250; J2270; J2405; J2543; J3010; J3370; J7030; J7050; Q9967

== ENCOUNTER → 2020-03-04 | Outpatient (CLI) | payer BC ==
[~2020-03-04] MED LIST: AMARYL2 MG PO; Acetamin/Butalbital/Caffeine PO; HUMULIN R100 UNIT/2 SQ; METFORMIN HCL500 M1 PO; METFORMIN HCL500 MG PO; TYLENOL # 31 EA PO; VANCOMYCIN HCL1 GM IV
[2020-03-04 11:37] LABS: INR 0.93; PARTIAL THROMBOPLASTIN TIME 28.3 seconds (23.8-35.5)
[2020-03-04 11:42] LABS: BLOOD UREA NITROGEN 17 mg/dL (7-26); BUN/CREATININE RATIO 20 (6-25); CREATININE, SERUM 0.84 mg/dL (0.57-1.11); EST GLOMERULAR FILTRATION RATE > 60 ML/MIN (60-)
--- NOTE | 2020-03-04 13:00 | Diagnostic Imaging Report ---
EXAMINATION: CHEST XRAY LINE PLACEMENT INDICATION: Line placement COMPARISON: Chest radiograph 05/12/2019 FINDINGS: LINES/TUBES:Right PICC line terminates at the superior cavoatrial junction. LUNGS:The lungs are well-inflated. No focal consolidation or pulmonary edema. PLEURA:No pleural effusion or pneumothorax. MEDIASTINUM:The cardiomediastinal silhouette appears normal in size and shape. BONES/SOFT TISSUES:No acute osseous injury. ABDOMEN:No free air under the diaphragm. IMPRESSION: Right PICC line terminates at the superior cavoatrial junction. Signed by: Radha Whiting MD on 03/04/2020 12:57 PM
--- NOTE | 2020-03-05 11:58 | NUR ---
followup call made for picc insertion. pt states she is doing well and has already gotten iv antibiotics started. instructed to call md with any issues
== END ==
LOC: DX 11:02
PROVIDERS: ATTEND Internal Medicine Infectious Disease
DX: L02.91 Cutaneous abscess, unspecified (principal)
CPT/HCPCS: 36415; 36569; 71045; 82565; 84520; 85014; 85049; 85610; 85730